=== PATIENT | male | born 1960 | race Caucasian/White ===

== ENCOUNTER → 2017-11-20 | Outpatient (CLI) | payer OTHER | END | disposition home or self-care (01) | LOC: CFH 09:14 | PROVIDERS: ATTEND Internal Medicine Critical Care Medicine | DX: T65.2 Toxic effect of tobacco and nicotine (principal); F17.210 Nicotine dependence, cigarettes, uncomplicated | CPT/HCPCS: G0297 ==

== ENCOUNTER 2019-04-09 07:17 | Inpatient (IN) | payer OTHER ==
[~2019-04-09] VITALS: Ht 182.9 cm; Wt 86.9 kg
[~2019-04-09 07:17] MED LIST: ALBU8.5H8 INH; AMOX1TAB64 PO; ASPI-515 PO; ATOR40TA78 PO; CARV6.2512 PO; FURO20TA3 PO; L.AC1CAP6 PO; LOSA100T14 PO; METF500T17 PO; METH4TAB6 PO; TICA90TA PO; UMEC1DIS INH
--- NOTE | 2019-04-09 07:27 | NUR ---
PT SOB STARTING AT MIDNIGHT. AT BEDSIDE. PT 55% ON RA. PLACED ON 16L NON REBREATHER, NOW AT 100%. USING ACCESSORY MUSCLES TO BREATHE. SPEAKING ONE TO TWO WORDS IN BETWEEN BREATHS. PA AT BEDSIDE TO ASSESS PT NOW. RR 35. TACHYCARDIC AT 140.
[2019-04-09] MEDS ORDERED: SODIUM CHLORIDE FLUSH 10ML SYR IVF ONE (07:30)
[2019-04-09] MEDS ORDERED: methylPREDNISolone SOD SUCC 125 MG/2 ML IV ONE (07:30)
[2019-04-09] MEDS ORDERED: CEFTRIAXONE 1,000 MG IV ONE (07:30)
--- NOTE | 2019-04-09 07:34 | NUR ---
PER PT'S , WAS SEEN BY PCP YESTERDAY WITH DIFFICULTY BREATHING. PCP PRESCRIBED NEBULIZER- PT HAS NOT RECEIVED NEBULIZER YET SO HAS NOT HAD ANY DOSES.
[2019-04-09] MEDS ORDERED: methylPREDNISolone SOD SUCC 125 MG/2 ML ONE ×2 (07:36→19:15)
--- NOTE | 2019-04-09 07:38 | NUR ---
PT MEDICATED PER EMAR. RADIOLOGY AT BEDSIDE. SECOND PIV STARTED NOW.
[2019-04-09] MEDS ORDERED: ALBUTEROL/IPRATROPIUM 2.5MG/0.5MG, 3 ML ONE ×5 (07:42→18:18)
--- NOTE | 2019-04-09 07:49 | NUR ---
REPORT GIVEN TO DIA CHANCE.
--- NOTE | 2019-04-09 07:51 | NUR ---
Assumed c/o pt from DIA Pablo. Pt is currently receiving neb treatment. RR 34, speaks 2-3 word sentences, productive cough, audible gurgling with respirations. B lung bases very diminished, upper B lobes diminished with exp. wheeze. Remains on 15 L via NRB. Remains alert, @ BS. ABG drawn by lab.
[2019-04-09] MEDS ORDERED: SODIUM CHLORIDE 0.9% 1,000ML IVBOLUS ONE (08:00)
[2019-04-09] MEDS ORDERED: ALBUTEROL/IPRATROPIUM 2.5MG/0.5MG, 3 ML NPPB ONE (08:00)
--- NOTE | 2019-04-09 08:00 | NUR ---
Pt reports no improvement after neb tx.
[2019-04-09 08:03] LABS: MEAN CORPUSCULAR HEMOGLOBIN 34.3 pg (27.5-34.5); MEAN CORPUSCULAR HGB CONC 32.9 g/dL (33.2-36.2); MEAN CORPUSCULAR VOLUME 104.3 fL (81-97); MEAN PLATELET VOLUME 9.5 fL (7.4-10.4); PLATELET COUNT 264 x10^3/uL (130-400); RED BLOOD COUNT 3.96 x10^6/uL (4.38-5.82); RED CELL DISTRIBUTION WIDTH 14.1 % (9.4-14.8)
[2019-04-09 08:04] LABS: O2 FLOW 15 L/min
[2019-04-09 08:09] LABS: INTERNATIONAL NORMALIZED RATIO 0.96 (0.93-1.1); PROTHROMBIN TIME 10.1 Seconds (9.6-11.5)
[2019-04-09 08:11] LABS: ALANINE AMINOTRANSFERASE 111 U/L (12-78); ALBUMIN 3.3 g/dL (3.4-5.0); ANION GAP 8 mmol/L (5-15); CALCIUM 9.4 mg/dL (8.5-10.1); CHLORIDE 107 mmol/L (98-107); CREATININE 1.35 mg/dL (0.7-1.3)
--- NOTE | 2019-04-09 08:15 | NUR ---
ABG drawn & resulted, critical values relayed to Dr. Haley. Pt can no longer speak words, communicating with hands. POC to intubate. Dr. Haley has spoken with patient, who understands and requests to be intubated.
[2019-04-09 08:16] LABS: ALKALINE PHOSPHATASE 111 U/L (45-117); BILIRUBIN,TOTAL 0.7 mg/dL (0.2-1.0); TOTAL PROTEIN 8.4 g/dL (6.4-8.2)
[2019-04-09 08:22] LABS: TROPONIN I 0.485 ng/mL (0.000-0.045)
[2019-04-09] MEDS ORDERED: ALBUTEROL SULFATE 2.5MG/0.5ML ONE (08:33)
[2019-04-09] MEDS: PROPOFOL 100 ML IV SCH ×3 (08:36→23:30)
[2019-04-09 08:44] LABS: RAPID INFLUENZA A Negative (Negative); RAPID INFLUENZA B Negative (Negative)
[2019-04-09] MEDS ORDERED: FENTANYL PF 100 MCG/2ML ONE (08:47)
[2019-04-09 08:56] LABS: MD YES
[2019-04-09 08:58] LABS: BAND#(MANUAL) 2.98 x10^3/uL; BANDS%(MANUAL) 20 % (0-7); LYMPH#(MANUAL) 2.24 x10^3/uL (1-3.4); LYMPHS% (MANUAL) 15 % (22-44); METAMYELOCYTES# (MANUAL) 0.15 x10^3/uL (0-0); METAMYELOCYTES% (MANUAL) 1 % (0-1); MONOS#(MANUAL) 2.24 x10^3/uL (0.3-2.7); MONOS% (MANUAL) 15 % (2-9); SEGS% (MANUAL) 49 % (42-75)
[2019-04-09 08:59] LABS: <PLATELET ESTIMATE> ADEQUATE; <PLT MORPHOLOGY> NORMAL PLT MORPH; POLYCHROMASIA 1+
[2019-04-09] MEDS ORDERED: ETOMIDATE 20 MG/10 ML IVPush ONE (09:00)
[2019-04-09] MEDS ORDERED: FENTANYL PF 100 MCG/2ML IVPush ONE (09:00)
[2019-04-09] MEDS ORDERED: PROPOFOL 10 MG/ML, 20ML IVPush ONE (09:00)
[2019-04-09] MEDS ORDERED: SUCCINYLCHOLINE 20 MG/ML, 10ML IVPush ONE (09:00)
--- NOTE | 2019-04-09 09:05 | NUR ---
Late entry: 829, pt intubated uneventfully with 20 etomidate & 100 sux w/ 8ETT secured at 25 mm at lips.
--- NOTE | 2019-04-09 09:05 | NUR ---
cont'd: Vent settings 16/500/100%, PEEP 5. Tube placement confirmed by ER MD, pt connected to ETCO2 monitor with good waveform. Current reading 58
[2019-04-09] MEDS ORDERED: KETAMINE 10 MG/ML, 20ML ONE (09:11)
--- NOTE | 2019-04-09 09:15 | NUR ---
Late entry: pt had approx 30 sec of polymorphic Vtach w/ pulse. Dr. Haley brought to BS & orders for Mag & amiodorone infusion received.
[2019-04-09] MEDS ORDERED: KETAMINE 100 MG/ML, 5ML IV ONE (09:30)
[2019-04-09] MEDS ORDERED: MAGNESIUM SULFATE PMX 2GM/50ML 50 ML IV ONE (09:30)
[2019-04-09] MEDS ORDERED: ENOXAPARIN 40 MG/0.4 ML SQ SCH (09:30)
[2019-04-09] MEDS ORDERED: FILTER 0.22 MICRON IV PRN (09:30)
[2019-04-09] MEDS ORDERED: AMIODARONE 900 MG in DEXTROSE 5% 482 ML IV PRN (09:30)
[2019-04-09] MEDS ORDERED: ENALAPRILAT 1.25 MG/ML, 2ML IVPush PRN (09:30)
[2019-04-09] MEDS ORDERED: BISACODYL 10 MG SUPP PR PRN (09:30)
[2019-04-09] MEDS ORDERED: ACETAMINOPHEN 325 MG TABLET PO PRN (09:30)
[2019-04-09] MEDS ORDERED: ONDANSETRON 2MG/ML, 2ML IVPush PRN (09:30)
[2019-04-09] MEDS ORDERED: AMIODARONE 50 MG/ML, 3ML IVPush ONE (09:30)
[2019-04-09] MEDS ORDERED: morphine SULFATE 10 MG/ML, 1ML IVPush PRN (09:30)
[2019-04-09] MEDS ORDERED: AMIODARONE 150 MG in DEXTROSE 5% 100 ML IV ONE (09:30)
[2019-04-09] MEDS ORDERED: POTASSIUM CHLORIDE 10% 40 MEQ/30 ML UDC PO ONE (09:30)
[2019-04-09] MEDS ORDERED: POLYETHYLENE GLYCOL 17 GM PACKET PO PRN (09:30)
--- NOTE | 2019-04-09 09:40 | NUR ---
Dr. Robles has seen pt and after reviewing chart, wants to hold amiodarone at this time.
--- NOTE | 2019-04-09 09:48 | NUR ---
Scant output from avilez catheter.
[2019-04-09] MEDS ORDERED: HEPARIN 25,000 UNITS/500ML PMX 500 ML ONE (10:08)
[2019-04-09] MEDS ORDERED: CEFTRIAXONE PMX 1GM/50ML 50 ML ONE (10:08)
[2019-04-09] MEDS ORDERED: HEPARIN 5,000 UNITS/ML, 1ML ONE ×2 (10:10→17:44)
--- NOTE | 2019-04-09 10:15 | NUR ---
Dr. Jerez called & updated on pt's 2nd trop result.
[2019-04-09] MEDS: CEFTRIAXONE PMX 1GM/50ML 50 ML IV SCH (10:18)
--- NOTE | 2019-04-09 10:23 | NUR ---
Pt remains lightly sedated, eyes closed & no movement at this time, opens eyes to slight noise. ET CO2 48. Awaiting ICU bed, pulmonology consult.
[2019-04-09] MEDS ORDERED: HEPARIN 5,000 UNITS/ML, 1ML IV ONE (10:30)
[2019-04-09] MEDS: HEPARIN 25,000 UNITS/500ML PMX 500 ML IV PRN ×2 (10:40→17:50)
[2019-04-09 10:45] LABS: TROPONIN I 0.666 ng/mL (0.000-0.045)
[2019-04-09] MEDS ORDERED: GABA-826 PO (11:15)
[2019-04-09] MEDS ORDERED: LOSA100T14 PO (11:15)
[2019-04-09] MEDS ORDERED: EZET10TA70 PO (11:18)
[2019-04-09] MEDS ORDERED: ALLO300T PO (11:18)
[2019-04-09] MEDS: AZITHROMYCIN 500 MG in SODIUM CHLORIDE 0.9% 250 ML IV SCH (11:18)
[2019-04-09] MEDS ORDERED: FLUO20TA25 PO (11:18)
[2019-04-09] MEDS ORDERED: AMLO-150 PO (11:18)
[2019-04-09] MEDS ORDERED: CARV-39 PO (11:18)
--- NOTE | 2019-04-09 11:18 | NUR ---
Friend/partner brought in medications from home & med list updated.
--- NOTE | 2019-04-09 11:53 | NUR ---
Dr. Murphy has been in to see pt. Vent settings changed by RT 14/50% from 16/60%. No change to TV or PEEP. One time STAT order for lasix 20mg IV VO Dr. Murphy due to lack of diuresis.
[2019-04-09] MEDS ORDERED: FUROSEMIDE 20 MG/2 ML ONE (11:57)
[2019-04-09] MEDS: FUROSEMIDE 40 MG/4 ML IV SCH (12:00)
[2019-04-09] MEDS ORDERED: PROPOFOL 100 ML IV PRN (12:38)
--- NOTE | 2019-04-09 12:40 | NUR ---
BREAK RN: PATIENT RESTING COMFORTABLY VITAL SIGNS REMAIN STABLE, NO NEEDS AT THIS TIME
[2019-04-09] MEDS ORDERED: DEXTROSE 50%, 50ML SYRINGE IVPush PRN (13:00)
[2019-04-09] MEDS ORDERED: PHARMACY MAY ADJ FOR RENAL FX MC SCH (13:00)
[2019-04-09] MEDS ORDERED: FENTANYL PF 100 MCG/2ML IVPush PRN (13:00)
[2019-04-09] MEDS ORDERED: ALBUTEROL/IPRATROPIUM 2.5MG/0.5MG, 3 ML INLINE SCH (13:00)
[2019-04-09] MEDS ORDERED: DEXTROSE 4 GM TAB.CHEW PO PRN (13:00)
[2019-04-09] MEDS ORDERED: GLUCAGON 1 MG IM PRN (13:00)
[2019-04-09 13:10] LABS: FIO2 50 %
[2019-04-09 13:18] LABS: INTERNATIONAL NORMALIZED RATIO 0.96 (0.93-1.1); PROTHROMBIN TIME 10.1 Seconds (9.6-11.5)
[2019-04-09 13:24] LABS: TROPONIN I 0.735 ng/mL (0.000-0.045)
--- NOTE | 2019-04-09 13:38 | NUR ---
RECEIVED BEDSIDE REPORT FROM DIA CHANCE. PT RESTING ON GURNEY. NADN. SLEEPING COMFORTABLY. VS AT BASELINE. FAMILY AT BEDSIDE.
[2019-04-09] MEDS: TICAGRELOR 90 MG TABLET PO SCH ×2 (13:39→21:32)
[2019-04-09] MEDS: ASPIRIN 81 MG TABLET EC PO SCH (13:40)
--- NOTE | 2019-04-09 13:50 | NUR ---
PT SLEEPING ON SOLITARIO. NADN. PINON.
[2019-04-09] MEDS: INSULIN LISPRO 100 UNITS/ML, PEN SQ-INSULIN SCH ×3 (14:18→21:00)
[2019-04-09] MEDS ORDERED: ENOXAPARIN 40 MG/0.4 ML ONE (14:22)
[2019-04-09] MEDS ORDERED: methylPREDNISolone SOD SUCC 40 MG/ML ONE (14:22)
[2019-04-09] MEDS: methylPREDNISolone SOD SUCC 40 MG/ML IV SCH ×2 (14:25→19:19)
--- NOTE | 2019-04-09 14:35 | NUR ---
RT AT BEDSIDE. PT RESTING ON GURNEY.
--- NOTE | 2019-04-09 14:50 | NUR ---
PT FOLLOWS COMMANDS APPROPRIATELY. SLEEPS INTERMITTENTLY. CURRENTLY ON PROPOFOL GTT. PT RESTING ON GURNEY. NADN. ICU HOSPITAL BED ORDERED FOR PT.
[2019-04-09 15:21] LABS: TROPONIN I 0.652 ng/mL (0.000-0.045)
--- NOTE | 2019-04-09 15:23 | NUR ---
PT SLEEPING ON SOLITARIO. NADN. PINON.
[2019-04-09] MEDS ORDERED: PROPOFOL 100 ML IV ONE (15:38)
[2019-04-09] MEDS ORDERED: VECURONIUM 10 MG ONE (15:39)
[2019-04-09] MEDS ORDERED: PROPOFOL 10 MG/ML, 100ML IV ONE (15:39)
[2019-04-09] MEDS ORDERED: PROPOFOL 10 MG/ML, 20ML ONE (15:39)
[2019-04-09] MEDS ORDERED: SUCCINYLCHOLINE 20 MG/ML, 10ML ONE (15:39)
[2019-04-09] MEDS ORDERED: ETOMIDATE 20 MG/10 ML ONE (15:39)
--- NOTE | 2019-04-09 16:56 | NUR ---
PT MOVED FROM [facility] TO ICU HOSPITAL BED W/ X4 ASSISTANCE. PT TOLERATED WELL. POSITIONED ON BED FOR COMFORT. FAMILY AT BEDSIDE.
[2019-04-09] MEDS: CARVEDILOL 6.25 MG TABLET PO SCH (17:13)
[2019-04-09] MEDS: HEPARIN 5,000 UNITS/ML, 1ML IV PRN (17:48)
[2019-04-09 18:52] LABS: TROPONIN I 0.498 ng/mL (0.000-0.045)
--- NOTE | 2019-04-09 18:54 | NUR ---
Pt report from Lynne rn. This rn to assume care of pt. No immediate needs from pt. Pt intermittently conscious and difficult to sedate s/t chronic alcoholism, per self report. Pt in no distress and all vss on vent. All drips infusing appropriately per rn report and emar. Awaiting icu bed.
[2019-04-09] MEDS: ALBUTEROL/IPRATROPIUM 2.5MG/0.5MG, 3 ML INLINE SCH ×2 (19:00→22:39)
--- NOTE | 2019-04-09 19:03 | NUR ---
REPORT GIVEN TO EILEEN TAYLOR RN.
[2019-04-09] MEDS: BUDESONIDE 0.5 MG/2 ML INHA INH SCH (21:00)
[2019-04-09] MEDS: FAMOTIDINE 20 MG/2 ML IVPush SCH (21:32)
[2019-04-09] MEDS: ATORVASTATIN 40 MG TABLET PO SCH (21:32)
[2019-04-09] MEDS: SODIUM CHLORIDE FLUSH 10ML SYR IVF SCH (21:32)
[2019-04-09 23:01] VITALS: BP 122/83
[2019-04-10] MEDS: methylPREDNISolone SOD SUCC 40 MG/ML IV SCH ×4 (00:20→20:10)
[2019-04-10] MEDS: HEPARIN 5,000 UNITS/ML, 1ML IV PRN (00:25)
[2019-04-10 00:35] LABS: AMPHETAMINE SCREEN, URINE Negative (Negative); BARBITURATE SCREEN, URINE Negative (Negative); BENZODIAZEPINE SCREEN, URINE Negative (Negative); CANNABINOID SCREEN, URINE Negative (Negative); COCAINE SCREEN, URINE Negative (Negative); METHADONE SCREEN, URINE Negative (Negative); OPIATE SCREEN, URINE Negative (Negative)
[2019-04-10] MEDS: ALBUTEROL/IPRATROPIUM 2.5MG/0.5MG, 3 ML INLINE SCH ×6 (02:15→22:20)
[2019-04-10] MEDS: INSULIN LISPRO 100 UNITS/ML, PEN SQ-INSULIN SCH ×4 (03:57→20:13)
[2019-04-10 04:00] VITALS: BP 117/71
[2019-04-10 04:30] LABS: BASOPHILS # (AUTO) 0.01 x10^3/uL (0-0.1); BASOPHILS % (AUTO) 0 % (0-1); EOSINOPHILS % (AUTO) 0 % (1-7); LYMPHOCYTES # (AUTO) 0.67 x10^3/uL (1-3.4); LYMPHOCYTES % (AUTO) 12 % (22-44); MD NO; MEAN CORPUSCULAR HEMOGLOBIN 34.7 pg (27.5-34.5); MEAN CORPUSCULAR HGB CONC 32.8 g/dL (33.2-36.2); MEAN CORPUSCULAR VOLUME 105.8 fL (81-97); MEAN PLATELET VOLUME 9.8 fL (7.4-10.4); MONOCYTES # (AUTO) 0.41 x10^3/uL (0.2-0.8); MONOCYTES % (AUTO) 7 % (2-9); NEUTROPHILS # (AUTO) 4.43 x10^3/uL (1.8-6.8); NEUTROPHILS % (AUTO) 80 % (42-75); PLATELET COUNT 190 x10^3/uL (130-400); RED BLOOD COUNT 3.02 x10^6/uL (4.38-5.82); RED CELL DISTRIBUTION WIDTH 14.4 % (9.4-14.8)
[2019-04-10 04:33] LABS: ALANINE AMINOTRANSFERASE 65 U/L (12-78); ALBUMIN 2.3 g/dL (3.4-5.0); ANION GAP 8 mmol/L (5-15); CALCIUM 8.6 mg/dL (8.5-10.1); CHLORIDE 111 mmol/L (98-107); CREATININE 1.53 mg/dL (0.7-1.3)
[2019-04-10 04:35] LABS: ALKALINE PHOSPHATASE 60 U/L (45-117); BILIRUBIN,TOTAL 0.3 mg/dL (0.2-1.0); TOTAL PROTEIN 6.5 g/dL (6.4-8.2)
[2019-04-10] MEDS: CARVEDILOL 6.25 MG TABLET PO SCH ×2 (05:22→17:15)
[2019-04-10] MEDS: OXYcodone IR 5MG TABLET PO PRN (05:22)
[2019-04-10 07:44] LABS: TROPONIN I 0.162 ng/mL (0.000-0.045)
[2019-04-10] MEDS: PROPOFOL 100 ML IV SCH ×2 (08:08→13:45)
[2019-04-10 08:21] LABS: MICROSCOPIC INDICATED
[2019-04-10 08:50] LABS: CULTURE INDICATED? NO
[2019-04-10] MEDS ORDERED: POTASSIUM CHLORIDE 40 MEQ in SODIUM CHLORIDE 0.9% 500 ML IV ONE (09:00)
[2019-04-10] MEDS: FAMOTIDINE 20 MG/2 ML IVPush SCH ×2 (09:59→20:10)
[2019-04-10] MEDS: FUROSEMIDE 40 MG/4 ML IV SCH ×2 (09:59→17:15)
[2019-04-10] MEDS: SODIUM CHLORIDE FLUSH 10ML SYR IVF SCH ×2 (09:59→20:10)
[2019-04-10] MEDS: CEFTRIAXONE PMX 1GM/50ML 50 ML IV SCH (09:59)
[2019-04-10] MEDS: AZITHROMYCIN 500 MG in SODIUM CHLORIDE 0.9% 250 ML IV SCH (10:00)
[2019-04-10] MEDS: TICAGRELOR 90 MG TABLET PO SCH ×2 (10:00→20:09)
[2019-04-10] MEDS: ASPIRIN 81 MG TABLET EC PO SCH (10:00)
[2019-04-10] MEDS: SENNA/DOCUSATE TABLET PO SCH (10:00)
[2019-04-10] MEDS: HEPARIN 25,000 UNITS/500ML PMX 500 ML IV PRN (10:03)
[2019-04-10] MEDS: BUDESONIDE 0.5 MG/2 ML INHA INH SCH ×2 (11:15→18:50)
--- NOTE | 2019-04-10 14:03 | NUR ---
TF goal recs: Promote @ 85 ml/hour on propofol and 90 ml/hour off propofol
[2019-04-10] MEDS ORDERED: PROPOFOL 100 ML IV ONE (17:12)
[2019-04-10] MEDS: PROPOFOL 100 ML IV PRN ×2 (17:28→21:54)
[2019-04-10] MEDS: ATORVASTATIN 40 MG TABLET PO SCH (20:10)
[2019-04-10] MEDS: LIDOCAINE-MPF 1%, 2ML ENDO PRN (23:25)
[2019-04-11] MEDS: LORazepam 2 MG/ML, 1ML IVPush PRN ×3 (00:46→20:12)
[2019-04-11] MEDS: OXYcodone IR 5MG TABLET PO PRN ×2 (00:47→22:49)
[2019-04-11] MEDS: PROPOFOL 100 ML IV PRN ×5 (02:04→21:25)
[2019-04-11] MEDS: methylPREDNISolone SOD SUCC 40 MG/ML IV SCH ×4 (02:18→20:12)
[2019-04-11] MEDS: INSULIN LISPRO 100 UNITS/ML, PEN SQ-INSULIN SCH ×4 (02:21→20:16)
[2019-04-11] MEDS: ALBUTEROL/IPRATROPIUM 2.5MG/0.5MG, 3 ML INLINE SCH ×6 (02:50→22:45)
[2019-04-11 04:00] VITALS: BP 134/80
[2019-04-11 04:44] LABS: BASOPHILS # (AUTO) 0.02 x10^3/uL (0-0.1); BASOPHILS % (AUTO) 0 % (0-1); EOSINOPHILS # (AUTO) 0.04 x10^3/uL (0-0.4); EOSINOPHILS % (AUTO) 0 % (1-7); LYMPHOCYTES # (AUTO) 0.61 x10^3/uL (1-3.4); LYMPHOCYTES % (AUTO) 6 % (22-44); MD NO; MEAN CORPUSCULAR HEMOGLOBIN 34.6 pg (27.5-34.5); MEAN CORPUSCULAR HGB CONC 32.5 g/dL (33.2-36.2); MEAN CORPUSCULAR VOLUME 106.6 fL (81-97); MEAN PLATELET VOLUME 9.7 fL (7.4-10.4); MONOCYTES # (AUTO) 0.86 x10^3/uL (0.2-0.8); MONOCYTES % (AUTO) 9 % (2-9); NEUTROPHILS # (AUTO) 8.08 x10^3/uL (1.8-6.8); NEUTROPHILS % (AUTO) 84 % (42-75); PLATELET COUNT 242 x10^3/uL (130-400); RED BLOOD COUNT 3.19 x10^6/uL (4.38-5.82); RED CELL DISTRIBUTION WIDTH 14.4 % (9.4-14.8)
[2019-04-11] MEDS: CARVEDILOL 6.25 MG TABLET PO SCH ×2 (05:04→17:12)
[2019-04-11] MEDS: BUDESONIDE 0.5 MG/2 ML INHA INH SCH ×2 (06:46→20:59)
[2019-04-11 06:58] LABS: ANION GAP 6 mmol/L (5-15); CALCIUM 8.7 mg/dL (8.5-10.1); CHLORIDE 109 mmol/L (98-107); CREATININE 1.67 mg/dL (0.7-1.3)
[2019-04-11] MEDS: HEPARIN 25,000 UNITS/500ML PMX 500 ML IV PRN (07:07)
[2019-04-11] MEDS: FUROSEMIDE 40 MG/4 ML IV SCH ×2 (07:37→17:08)
[2019-04-11] MEDS: CEFTRIAXONE PMX 1GM/50ML 50 ML IV SCH (08:52)
[2019-04-11] MEDS: SENNA/DOCUSATE TABLET PO SCH (08:57)
[2019-04-11] MEDS: SODIUM CHLORIDE FLUSH 10ML SYR IVF SCH ×2 (08:58→20:12)
[2019-04-11] MEDS: ASPIRIN 81 MG TABLET EC PO SCH (08:58)
[2019-04-11] MEDS: FAMOTIDINE 20 MG/2 ML IVPush SCH ×2 (08:58→20:12)
[2019-04-11] MEDS: TICAGRELOR 90 MG TABLET PO SCH ×2 (08:58→20:12)
[2019-04-11] MEDS: AZITHROMYCIN 500 MG in SODIUM CHLORIDE 0.9% 250 ML IV SCH (09:29)
[2019-04-11] MEDS: LABETALOL 5MG/ML, 20ML IVPush PRN (09:38)
[2019-04-11] MEDS ORDERED: PHARMACY MAY ADJ FOR RENAL FX MC PRN ×2 (18:30)
[2019-04-11] MEDS ORDERED: PIPERACILLIN/TAZO/PMX 3.375GM 50 ML IV SCH (18:30)
[2019-04-11] MEDS: ENOXAPARIN 40 MG/0.4 ML SQ SCH (18:33)
[2019-04-11] MEDS: ATORVASTATIN 40 MG TABLET PO SCH (20:12)
[2019-04-12] MEDS: LORazepam 2 MG/ML, 1ML IVPush PRN (00:14)
[2019-04-12] MEDS: PROPOFOL 100 ML IV PRN ×7 (00:28→21:59)
[2019-04-12] MEDS: methylPREDNISolone SOD SUCC 40 MG/ML IV SCH ×4 (02:53→20:00)
[2019-04-12] MEDS: INSULIN LISPRO 100 UNITS/ML, PEN SQ-INSULIN SCH ×4 (02:59→20:06)
[2019-04-12] MEDS: ALBUTEROL/IPRATROPIUM 2.5MG/0.5MG, 3 ML INLINE SCH ×7 (03:10→22:14)
[2019-04-12 04:00] VITALS: BP 148/88
[2019-04-12 04:16] LABS: MEAN CORPUSCULAR HEMOGLOBIN 34.5 pg (27.5-34.5); MEAN CORPUSCULAR HGB CONC 32.3 g/dL (33.2-36.2); MEAN CORPUSCULAR VOLUME 106.8 fL (81-97); MEAN PLATELET VOLUME 10.2 fL (7.4-10.4); PLATELET COUNT 230 x10^3/uL (130-400); RED BLOOD COUNT 3.21 x10^6/uL (4.38-5.82); RED CELL DISTRIBUTION WIDTH 13.7 % (9.4-14.8)
[2019-04-12 04:43] LABS: MD YES
[2019-04-12 04:46] LABS: <PLATELET ESTIMATE> ADEQUATE; ANISOCYTOSIS 1+; BAND#(MANUAL) 0.18 x10^3/uL; BANDS%(MANUAL) 2 % (0-7); LARGE PLATELETS 1+; LYMPHS% (MANUAL) 10 % (22-44); METAMYELOCYTES# (MANUAL) 0.09 x10^3/uL (0-0); METAMYELOCYTES% (MANUAL) 1 % (0-1); MONOS#(MANUAL) 0.99 x10^3/uL (0.3-2.7); MONOS% (MANUAL) 11 % (2-9); POLYCHROMASIA 1+; SEG#(MANUAL) 6.84 x10^3/uL (1.8-6.8); SEGS% (MANUAL) 76 % (42-75)
[2019-04-12 05:29] LABS: CHLORIDE 106 mmol/L (98-107)
[2019-04-12 05:34] LABS: ANION GAP 4 mmol/L (5-15); CALCIUM 8.8 mg/dL (8.5-10.1); CREATININE 1.63 mg/dL (0.7-1.3)
[2019-04-12] MEDS: CARVEDILOL 6.25 MG TABLET PO SCH (05:47)
[2019-04-12] MEDS: BUDESONIDE 0.5 MG/2 ML INHA INH SCH ×2 (07:35→18:52)
[2019-04-12] MEDS ORDERED: CLOPIDOGREL 75 MG TABLET PO ONE (09:00)
[2019-04-12] MEDS: FAMOTIDINE 20 MG/2 ML IVPush SCH ×2 (09:53→20:00)
[2019-04-12] MEDS: SENNA/DOCUSATE TABLET PO SCH (09:53)
[2019-04-12] MEDS: FUROSEMIDE 40 MG/4 ML IV SCH ×2 (09:53→16:33)
[2019-04-12] MEDS: ASPIRIN 81 MG TABLET EC PO SCH (09:54)
[2019-04-12] MEDS: SODIUM CHLORIDE FLUSH 10ML SYR IVF SCH ×2 (09:54→20:00)
[2019-04-12] MEDS: LIDOCAINE-MPF 1%, 2ML ENDO PRN (15:51)
[2019-04-12] MEDS: CARVEDILOL 12.5 MG TABLET PO SCH (16:33)
[2019-04-12] MEDS: PIPERACILLIN/TAZO/PMX 3.375GM 50 ML IV SCH (19:59)
[2019-04-12] MEDS: ATORVASTATIN 40 MG TABLET PO SCH (20:00)
[2019-04-12] MEDS: ENOXAPARIN 40 MG/0.4 ML SQ SCH (20:07)
[2019-04-13] MEDS: PROPOFOL 100 ML IV PRN ×3 (01:02→07:18)
[2019-04-13] MEDS: PIPERACILLIN/TAZO/PMX 3.375GM 50 ML IV SCH ×4 (01:34→20:35)
[2019-04-13] MEDS: methylPREDNISolone SOD SUCC 40 MG/ML IV SCH ×4 (01:35→20:36)
[2019-04-13] MEDS: INSULIN LISPRO 100 UNITS/ML, PEN SQ-INSULIN SCH ×4 (01:36→21:05)
[2019-04-13] MEDS: ALBUTEROL/IPRATROPIUM 2.5MG/0.5MG, 3 ML INLINE SCH ×3 (02:38→10:40)
[2019-04-13 04:10] LABS: MEAN CORPUSCULAR HEMOGLOBIN 34.7 pg (27.5-34.5); MEAN CORPUSCULAR HGB CONC 32.7 g/dL (33.2-36.2); MEAN CORPUSCULAR VOLUME 106.2 fL (81-97); MEAN PLATELET VOLUME 9.6 fL (7.4-10.4); PLATELET COUNT 236 x10^3/uL (130-400); RED BLOOD COUNT 3.38 x10^6/uL (4.38-5.82); RED CELL DISTRIBUTION WIDTH 14.1 % (9.4-14.8)
[2019-04-13 04:35] LABS: MD YES
[2019-04-13] MEDS: CARVEDILOL 12.5 MG TABLET PO SCH ×2 (04:36→17:20)
[2019-04-13 04:37] LABS: BANDS%(MANUAL) 4 % (0-7); LYMPH#(MANUAL) 2.11 x10^3/uL (1-3.4); LYMPHS% (MANUAL) 17 % (22-44); MONOS#(MANUAL) 1.49 x10^3/uL (0.3-2.7); MONOS% (MANUAL) 12 % (2-9); MYELOCYTES# (MANUAL) 0.12 x10^3/uL (0-0); MYELOCYTES% (MANUAL) 1 % (0-0); SEG#(MANUAL) 8.18 x10^3/uL (1.8-6.8); SEGS% (MANUAL) 66 % (42-75)
[2019-04-13 04:38] LABS: ANISOCYTOSIS 1+
[2019-04-13 04:39] LABS: <PLATELET ESTIMATE> ADEQUATE; <PLT MORPHOLOGY> NORMAL PLT MORPH; POLYCHROMASIA 1+
[2019-04-13 05:24] LABS: CHLORIDE 102 mmol/L (98-107)
[2019-04-13 05:40] LABS: ALANINE AMINOTRANSFERASE 45 U/L (12-78); ALBUMIN 2.7 g/dL (3.4-5.0); ALKALINE PHOSPHATASE 69 U/L (45-117); ANION GAP 7 mmol/L (5-15); BILIRUBIN,TOTAL 0.3 mg/dL (0.2-1.0); CALCIUM 8.8 mg/dL (8.5-10.1); CREATININE 1.55 mg/dL (0.7-1.3)
[2019-04-13] MEDS: BUDESONIDE 0.5 MG/2 ML INHA INH SCH ×2 (07:05→18:31)
[2019-04-13] MEDS ORDERED: DEXMEDETOMIDINE 1,000 MCG in SODIUM CHLORIDE 0.9% 240 ML IV PRN (08:30)
[2019-04-13] MEDS: FAMOTIDINE 20 MG/2 ML IVPush SCH ×2 (09:15→20:36)
[2019-04-13] MEDS: ASPIRIN 81 MG TABLET EC PO SCH (09:16)
[2019-04-13] MEDS: SODIUM CHLORIDE FLUSH 10ML SYR IVF SCH ×2 (09:16→20:36)
[2019-04-13] MEDS: CLOPIDOGREL 75 MG TABLET PO SCH (09:16)
[2019-04-13] MEDS: SENNA/DOCUSATE TABLET PO SCH (09:17)
[2019-04-13] MEDS: FUROSEMIDE 40 MG/4 ML IV SCH ×2 (09:17→16:46)
[2019-04-13] MEDS ORDERED: ALBUTEROL/IPRATROPIUM 2.5MG/0.5MG, 3 ML ONE (11:42)
[2019-04-13] MEDS: ALBUTEROL/IPRATROPIUM 2.5MG/0.5MG, 3 ML NPPB SCH ×4 (11:45→22:24)
[2019-04-13] MEDS: ATORVASTATIN 40 MG TABLET PO SCH (20:35)
[2019-04-13] MEDS: ENOXAPARIN 40 MG/0.4 ML SQ SCH (20:35)
[2019-04-14] MEDS: LABETALOL 5MG/ML, 20ML IVPush PRN (01:11)
[2019-04-14] MEDS: PIPERACILLIN/TAZO/PMX 3.375GM 50 ML IV SCH ×4 (01:31→20:40)
[2019-04-14] MEDS: methylPREDNISolone SOD SUCC 40 MG/ML IV SCH ×4 (01:32→20:40)
[2019-04-14] MEDS: ALBUTEROL/IPRATROPIUM 2.5MG/0.5MG, 3 ML NPPB SCH ×6 (03:00→23:00)
[2019-04-14 04:30] LABS: MEAN CORPUSCULAR HGB CONC 32.1 g/dL (33.2-36.2); MEAN CORPUSCULAR VOLUME 105.7 fL (81-97); MEAN PLATELET VOLUME 9.8 fL (7.4-10.4); PLATELET COUNT 256 x10^3/uL (130-400); RED BLOOD COUNT 3.77 x10^6/uL (4.38-5.82); RED CELL DISTRIBUTION WIDTH 14.2 % (9.4-14.8)
[2019-04-14] MEDS: INSULIN LISPRO 100 UNITS/ML, PEN SQ-INSULIN SCH ×5 (04:37→21:10)
[2019-04-14] MEDS: CARVEDILOL 12.5 MG TABLET PO SCH ×2 (05:39→18:01)
[2019-04-14 05:40] LABS: MD YES
[2019-04-14 05:41] LABS: BAND#(MANUAL) 0.36 x10^3/uL; BANDS%(MANUAL) 3 % (0-7); LYMPH#(MANUAL) 1.32 x10^3/uL (1-3.4); LYMPHS% (MANUAL) 11 % (22-44); METAMYELOCYTES# (MANUAL) 0.48 x10^3/uL (0-0); METAMYELOCYTES% (MANUAL) 4 % (0-1); MONOS#(MANUAL) 1.08 x10^3/uL (0.3-2.7); MONOS% (MANUAL) 9 % (2-9); MYELOCYTES# (MANUAL) 0.12 x10^3/uL (0-0); MYELOCYTES% (MANUAL) 1 % (0-0); NRBC % (MANUAL) 1 % (0-1); SEG#(MANUAL) 8.64 x10^3/uL (1.8-6.8); SEGS% (MANUAL) 72 % (42-75)
[2019-04-14 05:42] LABS: ANISOCYTOSIS 1+
[2019-04-14 05:43] LABS: <PLATELET ESTIMATE> ADEQUATE; <PLT MORPHOLOGY> NORMAL PLT MORPH; POLYCHROMASIA 1+
[2019-04-14] MEDS: BUDESONIDE 0.5 MG/2 ML INHA INH SCH ×2 (07:20→20:27)
[2019-04-14 07:57] LABS: ANION GAP 8 mmol/L (5-15); CALCIUM 9.5 mg/dL (8.5-10.1); CHLORIDE 99 mmol/L (98-107)
[2019-04-14] MEDS: FAMOTIDINE 20 MG/2 ML IVPush SCH ×2 (08:38→20:40)
[2019-04-14] MEDS: SODIUM CHLORIDE FLUSH 10ML SYR IVF SCH ×2 (08:38→20:41)
[2019-04-14] MEDS: CLOPIDOGREL 75 MG TABLET PO SCH (08:39)
[2019-04-14] MEDS: FUROSEMIDE 40 MG/4 ML IV SCH (08:39)
[2019-04-14] MEDS: SENNA/DOCUSATE TABLET PO SCH (08:39)
[2019-04-14] MEDS: LOSARTAN 25MG TABLET PO SCH (08:40)
[2019-04-14] MEDS: ASPIRIN 81 MG TABLET EC PO SCH (08:41)
[2019-04-14 10:56] VITALS: BP 146/71
[2019-04-14 13:35] VITALS: BP 153/87
[2019-04-14 19:25] VITALS: BP 110/79
[2019-04-14] MEDS: ATORVASTATIN 40 MG TABLET PO SCH (20:40)
[2019-04-14] MEDS: ENOXAPARIN 40 MG/0.4 ML SQ SCH (20:41)
[2019-04-15 01:05] VITALS: BP 137/89
[2019-04-15] MEDS: ALBUTEROL/IPRATROPIUM 2.5MG/0.5MG, 3 ML NPPB SCH ×2 (02:29→08:05)
[2019-04-15] MEDS: PIPERACILLIN/TAZO/PMX 3.375GM 50 ML IV SCH ×4 (03:43→21:16)
[2019-04-15] MEDS: methylPREDNISolone SOD SUCC 40 MG/ML IV SCH ×4 (03:44→20:55)
[2019-04-15 05:27] LABS: MEAN CORPUSCULAR HEMOGLOBIN 33.7 pg (27.5-34.5); MEAN CORPUSCULAR HGB CONC 32.4 g/dL (33.2-36.2); MEAN CORPUSCULAR VOLUME 103.8 fL (81-97); MEAN PLATELET VOLUME 9.7 fL (7.4-10.4); PLATELET COUNT 243 x10^3/uL (130-400); RED BLOOD COUNT 3.87 x10^6/uL (4.38-5.82); RED CELL DISTRIBUTION WIDTH 14.3 % (9.4-14.8)
[2019-04-15 05:53] LABS: CHLORIDE 99 mmol/L (98-107)
[2019-04-15 05:55] LABS: ANION GAP 5 mmol/L (5-15); CALCIUM 9.1 mg/dL (8.5-10.1); CREATININE 1.63 mg/dL (0.7-1.3)
[2019-04-15 05:56] LABS: TRIGLYCERIDES 699 mg/dL (50-200)
[2019-04-15 06:06] LABS: BASOPHILS # (AUTO) 0.02 x10^3/uL (0-0.1); BASOPHILS % (AUTO) 0 % (0-1); EOSINOPHILS # (AUTO) 0.09 x10^3/uL (0-0.4); EOSINOPHILS % (AUTO) 1 % (1-7); LYMPHOCYTES # (AUTO) 1.63 x10^3/uL (1-3.4); LYMPHOCYTES % (AUTO) 13 % (22-44); MD SCAN; MONOCYTES # (AUTO) 0.06 x10^3/uL (0.2-0.8); MONOCYTES % (AUTO) 1 % (2-9); NEUTROPHILS # (AUTO) 10.71 x10^3/uL (1.8-6.8); NEUTROPHILS % (AUTO) 86 % (42-75)
[2019-04-15 06:16] VITALS: BP 149/78
[2019-04-15] MEDS: CARVEDILOL 12.5 MG TABLET PO SCH (06:17)
[2019-04-15 07:36] VITALS: BP 137/8
[2019-04-15] MEDS: BUDESONIDE 0.5 MG/2 ML INHA INH SCH ×3 (08:06→20:58)
[2019-04-15] MEDS: INSULIN LISPRO 100 UNITS/ML, PEN SQ-INSULIN SCH ×4 (08:49→21:17)
[2019-04-15] MEDS: LOSARTAN 25MG TABLET PO SCH (08:50)
[2019-04-15] MEDS: ASPIRIN 81 MG TABLET EC PO SCH (08:51)
[2019-04-15] MEDS: SENNA/DOCUSATE TABLET PO SCH (08:51)
[2019-04-15] MEDS: CLOPIDOGREL 75 MG TABLET PO SCH (08:51)
[2019-04-15] MEDS: FAMOTIDINE 20 MG/2 ML IVPush SCH (08:53)
[2019-04-15] MEDS: SODIUM CHLORIDE FLUSH 10ML SYR IVF SCH ×2 (08:53→20:56)
[2019-04-15] MEDS: FUROSEMIDE 40 MG/4 ML IV SCH (08:53)
[2019-04-15] MEDS ORDERED: ALBUTEROL/IPRATROPIUM 2.5MG/0.5MG, 3 ML NPPB PRN (11:30)
[2019-04-15 12:29] VITALS: BP 150/93
[2019-04-15 12:40] VITALS: BP 139/69
[2019-04-15] MEDS: CARVEDILOL 25 MG TABLET PO SCH (17:23)
[2019-04-15] MEDS: ATORVASTATIN 40 MG TABLET PO SCH (20:55)
[2019-04-15] MEDS: MELATONIN 5 MG TABLET PO PRN (20:55)
[2019-04-15] MEDS: ENOXAPARIN 40 MG/0.4 ML SQ SCH (20:55)
[2019-04-15] MEDS: FAMOTIDINE 20 MG TABLET PO SCH (20:55)
[2019-04-15 21:07] VITALS: BP 132/34
[2019-04-16] MEDS: methylPREDNISolone SOD SUCC 40 MG/ML IV SCH ×4 (01:46→20:15)
[2019-04-16] MEDS: PIPERACILLIN/TAZO/PMX 3.375GM 50 ML IV SCH ×4 (01:46→20:14)
[2019-04-16 01:52] VITALS: BP 132/84
[2019-04-16 05:27] LABS: BASOPHILS % (AUTO) 0 % (0-1); EOSINOPHILS # (AUTO) 0.15 x10^3/uL (0-0.4); EOSINOPHILS % (AUTO) 1 % (1-7); LYMPHOCYTES # (AUTO) 1.14 x10^3/uL (1-3.4); LYMPHOCYTES % (AUTO) 9 % (22-44); MD NO; MEAN CORPUSCULAR HGB CONC 32.3 g/dL (33.2-36.2); MEAN CORPUSCULAR VOLUME 105.2 fL (81-97); MONOCYTES % (AUTO) 1 % (2-9); NEUTROPHILS # (AUTO) 11.57 x10^3/uL (1.8-6.8); NEUTROPHILS % (AUTO) 89 % (42-75); PLATELET COUNT 262 x10^3/uL (130-400); RED BLOOD COUNT 3.97 x10^6/uL (4.38-5.82); RED CELL DISTRIBUTION WIDTH 13.7 % (9.4-14.8)
[2019-04-16 06:27] VITALS: BP 131/86
[2019-04-16] MEDS: CARVEDILOL 25 MG TABLET PO SCH ×2 (06:28→17:53)
[2019-04-16] MEDS: INSULIN LISPRO 100 UNITS/ML, PEN SQ-INSULIN SCH ×4 (07:00→20:38)
[2019-04-16 08:10] VITALS: BP 93/49
[2019-04-16] MEDS ORDERED: REGADENOSON 0.4 MG/5 ML SYRINGE ONE (08:33)
[2019-04-16] MEDS: FUROSEMIDE 40 MG/4 ML IV SCH (08:42)
[2019-04-16] MEDS: ASPIRIN 81 MG TABLET EC PO SCH (08:42)
[2019-04-16] MEDS: LOSARTAN 25MG TABLET PO SCH (08:42)
[2019-04-16] MEDS: SENNA/DOCUSATE TABLET PO SCH (08:42)
[2019-04-16] MEDS: CLOPIDOGREL 75 MG TABLET PO SCH (08:42)
[2019-04-16] MEDS: FAMOTIDINE 20 MG TABLET PO SCH ×2 (08:42→20:14)
[2019-04-16] MEDS: SODIUM CHLORIDE FLUSH 10ML SYR IVF SCH ×2 (08:43→20:14)
[2019-04-16 19:17] VITALS: BP 113/75
[2019-04-16] MEDS: BUDESONIDE 0.5 MG/2 ML INHA INH SCH (19:23)
[2019-04-16] MEDS: ENOXAPARIN 40 MG/0.4 ML SQ SCH (20:13)
[2019-04-16] MEDS: ATORVASTATIN 40 MG TABLET PO SCH (20:14)
[2019-04-16] MEDS: MELATONIN 5 MG TABLET PO PRN (20:14)
[2019-04-17 01:27] VITALS: BP 120/81
[2019-04-17] MEDS: PIPERACILLIN/TAZO/PMX 3.375GM 50 ML IV SCH ×3 (02:18→14:02)
[2019-04-17] MEDS: methylPREDNISolone SOD SUCC 40 MG/ML IV SCH ×3 (02:18→14:02)
[2019-04-17 05:28] VITALS: BP 135/89
[2019-04-17 05:29] LABS: BASOPHILS # (AUTO) 0.04 x10^3/uL (0-0.1); BASOPHILS % (AUTO) 0 % (0-1); EOSINOPHILS # (AUTO) 0.13 x10^3/uL (0-0.4); EOSINOPHILS % (AUTO) 1 % (1-7); LYMPHOCYTES # (AUTO) 0.92 x10^3/uL (1-3.4); LYMPHOCYTES % (AUTO) 6 % (22-44); MD NO; MEAN CORPUSCULAR HEMOGLOBIN 34.4 pg (27.5-34.5); MEAN CORPUSCULAR HGB CONC 33.1 g/dL (33.2-36.2); MEAN PLATELET VOLUME 10.1 fL (7.4-10.4); MONOCYTES # (AUTO) 0.35 x10^3/uL (0.2-0.8); MONOCYTES % (AUTO) 2 % (2-9); NEUTROPHILS # (AUTO) 13.38 x10^3/uL (1.8-6.8); NEUTROPHILS % (AUTO) 90 % (42-75); PLATELET COUNT 248 x10^3/uL (130-400); RED BLOOD COUNT 4.13 x10^6/uL (4.38-5.82); RED CELL DISTRIBUTION WIDTH 13.5 % (9.4-14.8)
[2019-04-17] MEDS: CARVEDILOL 25 MG TABLET PO SCH ×2 (05:32→17:24)
[2019-04-17 05:39] LABS: ANION GAP 8 mmol/L (5-15); CALCIUM 9.3 mg/dL (8.5-10.1); CHLORIDE 96 mmol/L (98-107)
[2019-04-17 07:54] VITALS: BP 144/84
[2019-04-17] MEDS: INSULIN LISPRO 100 UNITS/ML, PEN SQ-INSULIN SCH ×4 (08:50→19:55)
[2019-04-17] MEDS: FUROSEMIDE 40 MG/4 ML IV SCH (08:51)
[2019-04-17] MEDS: SODIUM CHLORIDE FLUSH 10ML SYR IVF SCH ×2 (08:56→19:51)
[2019-04-17] MEDS: CLOPIDOGREL 75 MG TABLET PO SCH (08:56)
[2019-04-17] MEDS: LOSARTAN 25MG TABLET PO SCH (08:56)
[2019-04-17] MEDS: ASPIRIN 81 MG TABLET EC PO SCH (08:56)
[2019-04-17] MEDS: SENNA/DOCUSATE TABLET PO SCH (08:57)
[2019-04-17] MEDS: FAMOTIDINE 20 MG TABLET PO SCH (08:57)
[2019-04-17] MEDS: BUDESONIDE 0.5 MG/2 ML INHA INH SCH ×2 (10:40→19:55)
[2019-04-17] MEDS: ALBUTEROL/IPRATROPIUM 2.5MG/0.5MG, 3 ML NPPB SCH ×3 (10:40→19:55)
[2019-04-17 15:33] VITALS: BP 111/72
[2019-04-17 19:46] VITALS: BP 120/79
[2019-04-17] MEDS: ATORVASTATIN 40 MG TABLET PO SCH (19:50)
[2019-04-17] MEDS: MELATONIN 5 MG TABLET PO PRN (19:50)
[2019-04-17] MEDS: ENOXAPARIN 40 MG/0.4 ML SQ SCH (19:51)
[2019-04-18 01:09] VITALS: BP 112/72
[2019-04-18] MEDS: ALBUTEROL/IPRATROPIUM 2.5MG/0.5MG, 3 ML NPPB SCH ×5 (06:00→20:35)
[2019-04-18 06:35] LABS: BASOPHILS # (AUTO) 0.03 x10^3/uL (0-0.1); BASOPHILS % (AUTO) 0 % (0-1); EOSINOPHILS # (AUTO) 0.23 x10^3/uL (0-0.4); EOSINOPHILS % (AUTO) 2 % (1-7); LYMPHOCYTES # (AUTO) 1.63 x10^3/uL (1-3.4); LYMPHOCYTES % (AUTO) 16 % (22-44); MD NO; MEAN CORPUSCULAR HGB CONC 32.8 g/dL (33.2-36.2); MEAN CORPUSCULAR VOLUME 103.8 fL (81-97); MEAN PLATELET VOLUME 10.3 fL (7.4-10.4); MONOCYTES # (AUTO) 0.86 x10^3/uL (0.2-0.8); MONOCYTES % (AUTO) 8 % (2-9); NEUTROPHILS # (AUTO) 7.68 x10^3/uL (1.8-6.8); NEUTROPHILS % (AUTO) 74 % (42-75); PLATELET COUNT 190 x10^3/uL (130-400); RED BLOOD COUNT 3.81 x10^6/uL (4.38-5.82); RED CELL DISTRIBUTION WIDTH 13.4 % (9.4-14.8)
[2019-04-18 06:41] LABS: ANION GAP 8 mmol/L (5-15); CALCIUM 8.7 mg/dL (8.5-10.1); CHLORIDE 97 mmol/L (98-107)
[2019-04-18 06:43] LABS: CREATININE 1.44 mg/dL (0.7-1.3)
[2019-04-18] MEDS: CARVEDILOL 25 MG TABLET PO SCH ×2 (06:48→17:57)
[2019-04-18] MEDS: INSULIN LISPRO 100 UNITS/ML, PEN SQ-INSULIN SCH ×4 (08:08→20:24)
[2019-04-18] MEDS: BUDESONIDE 0.5 MG/2 ML INHA INH SCH ×2 (08:24→20:35)
[2019-04-18 08:45] VITALS: BP 94/62
[2019-04-18] MEDS ORDERED: FUROSEMIDE 40 MG TABLET PO SCH (09:00)
[2019-04-18 10:12] VITALS: BP 115/79
[2019-04-18] MEDS: SENNA/DOCUSATE TABLET PO SCH (10:13)
[2019-04-18] MEDS: FAMOTIDINE 20 MG TABLET PO SCH (10:15)
[2019-04-18] MEDS: ASPIRIN 81 MG TABLET EC PO SCH (10:15)
[2019-04-18] MEDS: CLOPIDOGREL 75 MG TABLET PO SCH (10:16)
[2019-04-18] MEDS: LOSARTAN 25MG TABLET PO SCH (10:16)
[2019-04-18] MEDS: SODIUM CHLORIDE FLUSH 10ML SYR IVF SCH ×2 (10:18→20:56)
[2019-04-18 14:31] VITALS: BP 148/79
[2019-04-18 20:12] VITALS: BP 113/77
[2019-04-18] MEDS: ENOXAPARIN 40 MG/0.4 ML SQ SCH (20:55)
[2019-04-18] MEDS: ATORVASTATIN 40 MG TABLET PO SCH (20:56)
[2019-04-18] MEDS: MELATONIN 5 MG TABLET PO PRN (20:56)
[2019-04-18 21:45] VITALS: BP 100/66
[2019-04-19 01:05] VITALS: BP 101/62
[2019-04-19 05:35] LABS: BASOPHILS # (AUTO) 0.04 x10^3/uL (0-0.1); BASOPHILS % (AUTO) 0 % (0-1); EOSINOPHILS # (AUTO) 0.09 x10^3/uL (0-0.4); EOSINOPHILS % (AUTO) 1 % (1-7); LYMPHOCYTES # (AUTO) 2.09 x10^3/uL (1-3.4); LYMPHOCYTES % (AUTO) 19 % (22-44); MD NO; MEAN CORPUSCULAR HEMOGLOBIN 34.3 pg (27.5-34.5); MEAN CORPUSCULAR HGB CONC 32.8 g/dL (33.2-36.2); MEAN CORPUSCULAR VOLUME 104.3 fL (81-97); MEAN PLATELET VOLUME 10.9 fL (7.4-10.4); MONOCYTES # (AUTO) 0.99 x10^3/uL (0.2-0.8); MONOCYTES % (AUTO) 9 % (2-9); NEUTROPHILS # (AUTO) 7.84 x10^3/uL (1.8-6.8); NEUTROPHILS % (AUTO) 71 % (42-75); PLATELET COUNT 210 x10^3/uL (130-400); RED BLOOD COUNT 3.92 x10^6/uL (4.38-5.82); RED CELL DISTRIBUTION WIDTH 13.3 % (9.4-14.8)
[2019-04-19 05:44] LABS: ANION GAP 7 mmol/L (5-15); CHLORIDE 99 mmol/L (98-107)
[2019-04-19 06:00] LABS: CREATININE 1.23 mg/dL (0.7-1.3)
[2019-04-19 06:28] VITALS: BP 132/75
[2019-04-19] MEDS: CARVEDILOL 25 MG TABLET PO SCH (06:28)
[2019-04-19] MEDS: BUDESONIDE 0.5 MG/2 ML INHA INH SCH (07:15)
[2019-04-19] MEDS: ALBUTEROL/IPRATROPIUM 2.5MG/0.5MG, 3 ML NPPB SCH (07:15)
[2019-04-19] MEDS: INSULIN LISPRO 100 UNITS/ML, PEN SQ-INSULIN SCH ×2 (07:38→11:41)
[2019-04-19] MEDS: SENNA/DOCUSATE TABLET PO SCH (09:00)
[2019-04-19] MEDS: CLOPIDOGREL 75 MG TABLET PO SCH (09:55)
[2019-04-19] MEDS: FAMOTIDINE 20 MG TABLET PO SCH (09:57)
[2019-04-19] MEDS: ASPIRIN 81 MG TABLET EC PO SCH (09:58)
[2019-04-19] MEDS: LOSARTAN 25MG TABLET PO SCH (09:59)
[2019-04-19] MEDS: SODIUM CHLORIDE FLUSH 10ML SYR IVF SCH (10:06)
[2019-04-19] MEDS ORDERED: PRED20TA PO (10:34)
[2019-04-19] MEDS ORDERED: LOSA25TA25 PO (10:34)
[2019-04-19] MEDS ORDERED: APIX5TAB4 PO (12:32)
== END 2019-04-19 13:05 | disposition home or self-care (01) | DRG 208 ==
LOC: ED 08:02 → EDIP 08:06 → CCU 20:25 → 5SO 04-14 10:54 → DCLOUNGE 04-19 12:50
PROVIDERS: ADMIT Internal Medicine; ATTEND Hospitalist
PROC: 0BH17EZ Insertion of Endotracheal Airway into Trachea, Via Natural or Artificial Opening (ICD-10-PCS; principal; 2019-04-09)
PROC: 5A1945Z Respiratory Ventilation, 24-96 Consecutive Hours (ICD-10-PCS; 2019-04-09)
PROC: 0T9B70Z Drainage of Bladder with Drainage Device, Via Natural or Artificial Opening (ICD-10-PCS; 2019-04-10)
DX: J96.21 Acute and chronic respiratory failure with hypoxia (principal); J15.1 Pneumonia due to Pseudomonas; N17.0 Acute kidney failure with tubular necrosis; I50.43 Acute on chronic combined systolic (congestive) and diastolic (congestive) heart failure; B17.9 Acute viral hepatitis, unspecified; I47.2 Ventricular tachycardia; J44.0 Chronic obstructive pulmonary disease with (acute) lower respiratory infection; J44.1 Chronic obstructive pulmonary disease with (acute) exacerbation; Z99.11 Dependence on respirator [ventilator] status; I24.9 Acute ischemic heart disease, unspecified; I11.0 Hypertensive heart disease with heart failure; J96.22 Acute and chronic respiratory failure with hypercapnia; D53.9 Nutritional anemia, unspecified; D75.89 Other specified diseases of blood and blood-forming organs; E11.9 Type 2 diabetes mellitus without complications; E66.9 Obesity, unspecified; Z68.26 Body mass index [BMI] 26.0-26.9, adult; E78.5 Hyperlipidemia, unspecified; F10.20 Alcohol dependence, uncomplicated; F15.90 Other stimulant use, unspecified, uncomplicated; F17.210 Nicotine dependence, cigarettes, uncomplicated; I25.10 Atherosclerotic heart disease of native coronary artery without angina pectoris; I25.5 Ischemic cardiomyopathy; I48.0 Paroxysmal atrial fibrillation; K76.1 Chronic passive congestion of liver; F32.9 Major depressive disorder, single episode, unspecified; Z80.1 Family history of malignant neoplasm of trachea, bronchus and lung; Z91.5 Personal history of self-harm; Z95.5 Presence of coronary angioplasty implant and graft; Z99.81 Dependence on supplemental oxygen
CPT/HCPCS: 31500; 36415; 36600; 87400; 93017; 96361; 96374; 96375; 99291; J3490; J7620; J7626; 71045; 78452; 80048; 80053; 80307; 81001; 82607; 82803; 82962; 83605; 83735; 83880; 84100; 84443; 84478; 84484; 85025; 85520; 85610; 85730; 87040; 87070; 87077; 87081; 87186; 87205; 93005; 93306; 94002; 94003; 94150; 94640; 99152; G0378; J0456; J0696; J1644; J1650; J1940; J2543; J2704; J2785; J3010; J3480; A9502; J0330; J1815; J2060; J2920; J2930; J3475; J7030; J7040; J7050; J7512

== ENCOUNTER 2019-08-16 09:52 | Emergency (ER) | payer OTHER ==
[~2019-08-16] VITALS: Ht 182.9 cm; Wt 90.0 kg
[~2019-08-16 09:52] MED LIST changes: +ALLO300T PO; +AMLO-150 PO; +APIX5TAB4 PO; +CARV-39 PO; +EZET10TA70 PO; +FLUO20TA25 PO; +GABA-826 PO; +LOSA25TA25 PO; +PRED20TA PO
--- NOTE | 2019-08-16 10:24 | NUR ---
PLASTER HELPER: PT TO ROOM FROM LOBBY VIA
[2019-08-16] MEDS ORDERED: ALBUTEROL/IPRATROPIUM 2.5MG/0.5MG, 3 ML ONE (10:49)
--- NOTE | 2019-08-16 10:54 | NUR ---
PT REPORT FROM DIA CUELLAR. PT CARE TO BE ASSUMED. PT CURRENTLY RECEIVING NEB TX.
[2019-08-16] MEDS ORDERED: SODIUM CHLORIDE FLUSH 10ML SYR IVF ONE (11:00)
[2019-08-16 11:15] LABS: ALANINE AMINOTRANSFERASE 117 U/L (12-78); ALBUMIN 2.9 g/dL (3.4-5.0); ANION GAP 8 mmol/L (5-15); CALCIUM 8.6 mg/dL (8.5-10.1); CHLORIDE 106 mmol/L (98-107); CREATININE 1.37 mg/dL (0.7-1.3)
[2019-08-16 11:17] LABS: MEAN CORPUSCULAR HEMOGLOBIN 33.2 pg (27.5-34.5); MEAN CORPUSCULAR HGB CONC 33.5 g/dL (33.2-36.2); MEAN CORPUSCULAR VOLUME 99.3 fL (81-97); MEAN PLATELET VOLUME 10.4 fL (7.4-10.4); PLATELET COUNT 271 x10^3/uL (130-400); RED BLOOD COUNT 3.48 x10^6/uL (4.38-5.82); RED CELL DISTRIBUTION WIDTH 19.4 % (9.4-14.8)
[2019-08-16 11:18] LABS: ALKALINE PHOSPHATASE 269 U/L (45-117); BILIRUBIN,TOTAL 1.5 mg/dL (0.2-1.0); TOTAL PROTEIN 7.2 g/dL (6.4-8.2)
--- NOTE | 2019-08-16 11:26 | NUR ---
PT AMBULATORY TO & FROM [facility] W/OUT INCIDENT; GAIT SLOW & STEADY; ACCOMPANIED BY THIS RN. PT WINDED FROM WALKING. UNABLE TO PROVIDED URINE SPECIMEN AT THIS TIME. MONITORING EQUIPMENT AND O2 AT 3LNC REAPPLIED.
--- NOTE | 2019-08-16 11:29 | NUR ---
DR YOU AT BS
[2019-08-16] MEDS ORDERED: FLUT1BLS3 INH (11:33)
--- NOTE | 2019-08-16 11:33 | NUR ---
MED REC COMPLETED TO THE BEST OF THE PT'S ABILITY - POOR HISTORIAN. PT STATES "I POOPED A LITTLE BIT" WHEN HE WAS IN BR. REMINDED TO NOTIFY RN SO THAT SAMPLE MAY BE COLLECTED; UNDERSTANDING VERBALIZED.
[2019-08-16 11:41] LABS: BASOPHILS # (AUTO) 0.08 x10^3/uL (0-0.1); BASOPHILS % (AUTO) 1 % (0-1); EOSINOPHILS # (AUTO) 0.07 x10^3/uL (0-0.4); EOSINOPHILS % (AUTO) 1 % (1-7); LYMPHOCYTES # (AUTO) 1.59 x10^3/uL (1-3.4); LYMPHOCYTES % (AUTO) 19 % (22-44); MD SCAN; MONOCYTES # (AUTO) 0.69 x10^3/uL (0.2-0.8); MONOCYTES % (AUTO) 8 % (2-9); NEUTROPHILS # (AUTO) 5.83 x10^3/uL (1.8-6.8); NEUTROPHILS % (AUTO) 71 % (42-75)
--- NOTE | 2019-08-16 12:19 | NUR ---
NO URINE OR STOOL SPECIMEN PROVIDED BY PT. DR YOU AWARE. PT TO BE DC'D.
--- NOTE | 2019-08-16 12:30 | NUR ---
PT AMBULATORY TO & FROM [facility] W/OUT INCIDENT. STOOL SPECIMEN PROVIDED: ALLAN RICK. Addendum: 08/16/19 at [address] YOU NOTIFIED.
[2019-08-16 12:47] VITALS: BP 127/74
[2019-08-16 13:26] LABS: CLOSTRIDIUM DIFFICILE ANTIGEN NEGATIVE; CLOSTRIDIUM DIFFICILE TOXIN NEGATIVE (Negative)
== END 2019-08-16 12:49 | disposition home or self-care (01) ==
LOC: ED 10:39
DX: J44.9 Chronic obstructive pulmonary disease, unspecified (principal); K92.2 Gastrointestinal hemorrhage, unspecified; E87.6 Hypokalemia; D64.9 Anemia, unspecified; R94.5 Abnormal results of liver function studies; R94.31 Abnormal electrocardiogram [ECG] [EKG]; I10 Essential (primary) hypertension; I25.10 Atherosclerotic heart disease of native coronary artery without angina pectoris; F17.200 Nicotine dependence, unspecified, uncomplicated
CPT/HCPCS: 36415; 71045; 80053; 83880; 85025; 87324; 89055; 93005; 94640; 99285

== ENCOUNTER 2019-08-25 08:47 | Outpatient (CLI) | payer OTHER ==
[~2019-08-25 08:47] MED LIST changes: +FLUT1BLS3 INH
== END 2019-08-25 23:59 | disposition home or self-care (01) ==
LOC: RAD 08:47 → EDSTATUS 09:30 → RAD 23:59
PROVIDERS: ATTEND Genetic Counselor, MS
DX: K76.0 Fatty (change of) liver, not elsewhere classified (principal)
CPT/HCPCS: 76700